=== PATIENT | male | born 1950 | race Caucasian/White ===

== ENCOUNTER → 2017-11-10 08:08 | Outpatient (CLI) | payer MEDICARE, SELFPAY ==
[2017-11-10 10:29] LABS: AST(SGOT) 19 U/L (15-37); Alanine Aminotransfer ALT/SGPT 28 U/L (16-61); Albumin, Serum 3.7 g/dL (3.2-5.0); Alkaline Phosphatase 113 U/L (45-117); Bilirubin, Direct 0.16 mg/dL (0.00-0.30); Cholesterol 107 mg/dL (200); Globulin 4.3 g/dL (2.2-4.2); High Density Lipoprotein 34 mg/dL; Triglycerides 137 mg/dL; Very Low Density Lipoprotein 27 mg/dL (5-40)
== END ==
PROVIDERS: Visit Provider Internal Medicine Cardiovascular Disease
DX: E78.5 Hyperlipidemia, unspecified (principal); Z79.899 Other long term (current) drug therapy
CPT/HCPCS: 36415; 80061; 80076

== ENCOUNTER → 2018-06-20 09:47 | Outpatient (CLI) | payer MEDICARE, SELFPAY ==
--- NOTE | 2018-06-21 11:20 | PFT ---
INTRODUCTION: The patient is a 77-year-old male that presents for pulmonary function testing secondary to a diagnosis of COPD. Respiratory therapy reports good patient effort. Bronchodilators were used during testing. INTERPRETATION: Forced expiration spirometry demonstrates the presence of a severe large airways obstructive ventilatory defect. There was no significant response to aerosolized bronchodilators, based upon strict ATS criteria. Spirograms are of good quality and do not plateau indicating slow emptying of the lungs. Body plethysmography was performed and reveals a decreased TLC to 3.56 L, 56% of predicted, indicative of a severe restrictive ventilatory impairment. The remainder of the lung volumes are symmetrically reduced. Diffusing capacity by single breath CO is severely reduced at 33% of predicted. When compared to previous pulmonary function studies dated November 2016, there has been a significant reduction in the patient's FVC, FEV1, TLC and DLCO. IMPRESSION: These pulmonary function studies demonstrate the presence of an irreversible severe mixed ventilatory defect with a symmetric reduction in diffusing capacity. There has been significant worsening in the patient's PFTs since November 2016, as noted above.
== END ==
PROVIDERS: Referring Provider Nurse Practitioner Acute Care; Visit Provider Nurse Practitioner Acute Care
DX: J90 Pleural effusion, not elsewhere classified (principal); Z72.0 Tobacco use
CPT/HCPCS: 94060; 94726; 94729

== ENCOUNTER → 2018-06-22 10:46 | Outpatient (CLI) | payer MEDICARE, SELFPAY ==
[2018-06-22 11:00] VITALS: PULSE 102; PULSE 80; PULSE 83; PULSE 88; PULSE 92; PULSE 93; PULSE 98; PULSE 99; O2SAT 87; O2SAT 92; O2SAT 94; O2SAT 96; O2SAT 97; O2SAT 98
--- NOTE | 2018-06-22 12:01 | CPS ---
Pt qualified for 2L Oxygen, prescription, face shet, and 6 minute walk test results faxed to [facility]. [facility] would not cover the patient since he had [employer]. [facility] going to pt's residence today to setup pt on oxygen.
--- NOTE | 2018-06-23 10:53 | PCM.PSN.6M ---
PSN 6 Minute Walk Test - Interpretation Interpretation: The patient ambulated 1062 feet over the course of 6 minutes beginning on room air without assistive devices or breaks. Pretesting oxygen saturation was noted to be 96% on room air. With ambulation, the hilario oxygen saturation was 87% at minute 2 of testing. 2 L/min of supplemental oxygen was applied and the patient was able to complete the remainder of the test, while maintaining oxygen saturations at or above 88%. This testing indicates a significant exertional oxygen desaturation. - Recommendations Recommendations: 2 L/min of supplemental oxygen should be utilized with exertion.
== END ==
PROVIDERS: Referring Provider Nurse Practitioner Acute Care; Visit Provider Nurse Practitioner Acute Care
DX: J90 Pleural effusion, not elsewhere classified (principal); Z72.0 Tobacco use
CPT/HCPCS: 94618

== ENCOUNTER → 2018-08-15 14:49 | Outpatient (CLI) | payer MEDICARE, SELFPAY ==
--- NOTE | 2018-08-15 15:07 | RAD_ITS ---
STUDY: X-RAY CHEST REASON FOR EXAM: Male, 68 years old. CHF. TECHNIQUE: PA and lateral views of the chest. COMPARISON: March 24, 2016 FINDINGS: There is a moderate size right pleural effusion. The visualized cardiac silhouette is stable. Normal mediastinum and juliana. Normal visualized pulmonary arteries. Normal visualized aortic arch and descending thoracic aorta. There are diffuse degenerative changes of the visualized thoracic spine. Normal visualized ribs, clavicles, and shoulders. There is no demonstrated abnormality of the visualized soft tissue structures of the upper abdomen. RAD/Chest PA and Lateral IMPRESSION: Moderate size right pleural effusion, cannot exclude associated right basilar atelectasis and/or pneumonia. Electronically Signed: Anna Harden MD at 22:26 EST Tel , Service support ,
[2018-08-15 15:51] LABS: Anion Gap 8 (5-15); BUN 28 mg/dL (7-18); BUN/Creat Ratio 15.8 RATIO (10-20); Calcium,Total 10.1 mg/dL (8.5-10.1); Chloride 100 mmol/L (98-107); Creatinine, Serum 1.77 mg/dL (0.70-1.30); EST Glomerular Filtration Rate 41 mL/min (>60); Est Glom Filt Rate - Afr Amer 49 mL/min (>60); Glucose 110 mg/dL (74-106); Sodium Level 142 mmol/L (136-145)
[2018-08-15 16:02] LABS: BNP,B-Type NATRIURETIC PEPTIDE 195.3 pg/mL (0-100)
== END ==
PROVIDERS: Referring Provider Internal Medicine Critical Care Medicine; Visit Provider Internal Medicine Critical Care Medicine
DX: I50.32 Chronic diastolic (congestive) heart failure (principal); J44.9 Chronic obstructive pulmonary disease, unspecified
CPT/HCPCS: 36415; 71046; 80048; 83880

== ENCOUNTER → 2018-08-23 11:22 | Outpatient (CLI) | payer MEDICARE, SELFPAY ==
[2018-08-18 14:36] VITALS: BMI 37.5
--- NOTE | 2018-08-23 | FLU_PTH ---
PATIENT: RULA RG LOC: U#:[id number] AGE/SX: 74/M ROOM: RE08/23/[address]: Dr. Evan Gutierrez MD : 1950 BED: DIS: SPEC #: [id number] RECD: 08/23/18 13:44 STATUS: SAMUEL JAMEL #: [id number] JORDYN: 08/23/18 00:[address]: Evan Gutierrez DEPT: CYTOLOGY RECD BY: Schuyler Londono ENTERED: 08/23/18 13:45 SP TYPE: Fluid OTHR DR: [facility] Tissues: THORACIC FLUID Procedures: Special Stain Group II Surgery Specimen Level IV Cytospin Fluid HEADER OPERATION: Ultrasound-guided right thoracentesis PRE-OP DIAGNOSIS: Right pleural effusion TISSUE SUBMITTED: Thoracentesis fluid for cytology DIAGNOSIS CYTOLOGY Thoracentesis fluid for cytology (cytospin and cell block): Negative for malignant cells. AM:princess 08/24/18 CYTOLOGY STUDY Slides are reviewed. CYTOLOGY GROSS Received is 120 ml of red cloudy fluid labeled with the patient's name and and designated per the requisition as thoracentesis. Submitted for cytology preparation including cell block. / 08/23/18 TC:5 CPT: 71498, 41273
--- NOTE | 2018-08-23 11:46 | US_ITS ---
PROCEDURE: ULTRASOUND GUIDED THORACENTESIS. DATE: August 23, 2018. INDICATION: Male, 68 years old. Right pleural effusion. PHYSICIAN: Clyde Beckford M.D. PROCEDURE: The risks, benefits, and alternatives to the procedure were explained to the patient. The specific risks of bleeding, infection, and pneumothorax requiring chest tube insertion were discussed and accepted. Written informed consent was obtained. Ultrasonographic evaluation of the right lower pleural space was carried out. An adequate pocket was identified. The patient was placed in the sitting, upright position. The overlying skin was prepped and draped in sterile fashion. 1% lidocaine was administered subcutaneously for local anesthesia. Under ultrasound guidance, a 5 Slovak thoracentesis needle/catheter system was advanced into the right posterior lower pleural fluid collection. Approximately 1720 mL of blood tinged fluid was drained. The catheter was removed, and a sterile dressing was applied. A specimen was collected and sent to the laboratory for analysis, as requested by the referring clinician. The patient tolerated the procedure well. A chest x-ray was ordered. US/Thoracentesis W US IMPRESSION: Ultrasound-guided right thoracentesis. Electronically Signed: Clyde Beckford MD at 15:02 EST , Service support ,
[2018-08-23 11:48] LABS: International Normalized Ratio 1.1; Partial Thromboplast Time 31.3 Seconds (24.1-36.2); Prothrombin Time (Protime)PT. 14.2 SECONDS (11.7-14.9)
--- NOTE | 2018-08-23 12:47 | RAD_ITS ---
STUDY: X-RAY CHEST REASON FOR EXAM: Male, 68 years old. Post right thoracentesis. TECHNIQUE: AP inspiration and expiration views. COMPARISON: Comparison is made with prior study dated August 15, 2018. FINDINGS: The patient is status post right thoracentesis. There is no evidence of pneumothorax. Mild right pleural-parenchymal changes persist. RAD/Chest Insp/Exp 2 View IMPRESSION: Status post right thoracentesis. There is no evidence of pneumothorax. Electronically Signed: Clyde Beckford MD at 9:45 EST , Service support ,
[2018-08-23 13:03] VITALS: BP 107/62; BP 127/78; BP 132/82; BP 133/80; BP 151/91; PULSE 64; PULSE 68; PULSE 73; PULSE 79; RESP 16; RESP 18; O2SAT 91; O2SAT 93; O2SAT 94; O2SAT 96
[2018-08-23 13:15] LABS: Cytology, Body Fluid / CSF SEE PATHOLOGY REPORT
== END ==
PROVIDERS: Nurse Practitioner Family; Referring Provider Internal Medicine Cardiovascular Disease; Visit Provider Internal Medicine Cardiovascular Disease
DX: I25.10 Atherosclerotic heart disease of native coronary artery without angina pectoris (principal); I48.0 Paroxysmal atrial fibrillation; I50.32 Chronic diastolic (congestive) heart failure; J90 Pleural effusion, not elsewhere classified; I31.3 Pericardial effusion (noninflammatory); E87.6 Hypokalemia; R94.2 Abnormal results of pulmonary function studies; E03.2 Hypothyroidism due to medicaments and other exogenous substances; Z72.0 Tobacco use; Z79.899 Other long term (current) drug therapy
CPT/HCPCS: 32555; 36415; 71046; 85610; 85730; 88108; 88305; 88313

== ENCOUNTER → 2018-09-01 08:03 | Outpatient (CLI) | payer MEDICARE, SELFPAY ==
[2018-08-18 14:36] VITALS: BMI 37.5
[2018-09-01 09:51] LABS: BUN 25 mg/dL (7-18); BUN/Creat Ratio 13.6 RATIO (10-20); Chloride 100 mmol/L (98-107); Creatinine, Serum 1.84 mg/dL (0.70-1.30); EST Glomerular Filtration Rate 39 mL/min (>60); Est Glom Filt Rate - Afr Amer 47 mL/min (>60); Glucose 132 mg/dL (74-106); Potassium 3.7 mmol/L (3.5-5.1); Sodium Level 139 mmol/L (136-145)
[2018-09-01 09:52] LABS: Anion Gap 7 (5-15)
== END ==
PROVIDERS: Referring Provider Internal Medicine Cardiovascular Disease; Visit Provider Internal Medicine Cardiovascular Disease
DX: I25.10 Atherosclerotic heart disease of native coronary artery without angina pectoris (principal); I48.0 Paroxysmal atrial fibrillation; I50.32 Chronic diastolic (congestive) heart failure; J90 Pleural effusion, not elsewhere classified
CPT/HCPCS: 36415; 80048

== ENCOUNTER → 2018-11-29 13:48 | Outpatient (CLI) | payer MEDICARE, SELFPAY ==
[2018-08-18 14:36] VITALS: BMI 37.5
[2018-11-15 15:20] VITALS: BMI 37.5
--- NOTE | 2018-11-29 13:49 | ECHOCS_ITS ---
Reason For Study: CHF Procedure This was a 2D Doppler, Color Flow transthoracic echocardiogram. The study was technically difficult. Contrast injection was performed. Exam performed in department. Left Ventricle Normal LV size. Severe concentric left ventricular hypertrophy. Left ventricular systolic function is normal. The estimated ejection fraction is 65 %. No regional wall motion abnormalities noted. Right Ventricle Normal RV size. Normal systolic function. Atria The left atrium is mildly enlarged. Normal right atrium. No doppler evidence for ASD. Mitral Valve There is no mitral annular calcification. Mild diffuse mitral valve thickening. Mild (1+) mitral valve insufficiency. Tricuspid Valve Normal tricuspid valve. Mild tricuspid valve insufficiency. Unable to estimate RV systolic pressure/pulmonary artery pressure due to technically difficult study. Aortic Valve Trisinus/trileaflet aortic valve. Mild diffuse aortic valve thickening. Mild focal aortic valve calcification. Aortic sclerosis, no stenosis. Pulmonic Valve The pulmonic valve is not well visualized. Great Vessels Normal sized aortic root. Pericardium/Pleural No pericardial effusion. Epicardial fat. Medication 22 gauge I.V. with prn adaptor inserted into left arm. Diluted definity 3ml given slow IV push to enhance endocardial definition. MMode/2D Measurements & Calculations LVIDd: 5.2 cm IVSd: 2.0 cm LVOT diam: 2.0 cm LVIDs: 3.4 cm LVPWd: 1.9 cm RVDd: 3.2 cm FS: 35.8 % LVOT area: 3.0 cm2 Ao root diam: 3.5 cm LAV(MOD-bp): 86.1 ml LVAd ap4: 32.3 cm2 LAV(MOD-bp) Indexed: 36.9 ml/m2 EDV(MOD-sp4): 98.6 ml LAV(MOD-sp2): 99.9 ml EDV(sp4-el): 103.6 ml LAV(MOD-sp4): 69.0 ml LVAs ap4: 14.3 cm2 ESV(MOD-sp4): 27.0 ml ESV(sp4-el): 28.4 ml EF(MOD-sp4): 72.6 % EF(sp4-el): 72.6 % SV(MOD-sp4): 71.6 ml SV(sp4-el): 75.3 ml LA A4 area: 23.8 cm2 LA dimension(2D): 3.9 cm RA A4 area: 17.7 cm2 Time Measurements MV dec time: 0.18 sec Doppler Measurements & Calculations MV E max jordan: 117.6 cm/sec Lat Peak E' Jordan: 8.2 cm/sec Med Peak E' Jordan: 4.6 cm/sec MV A max jordan: 82.2 cm/sec E/E' lat: 14.3 E/E' med: 25.3 MV E/A: 1.4 Ao V2 max: 132.1 cm/sec LV V1 max: 132.5 cm/sec PA V2 max: 134.5 cm/sec Ao max P.0 mmHg LV V1 max P.0 mmHg SOCO(V,D): 3.0 cm2 Interpretation Summary The study was technically difficult. Contrast injection was performed. Left ventricular systolic function is normal. The estimated ejection fraction is 65 %. Severe concentric left ventricular hypertrophy. The left atrium is mildly enlarged. Mild diffuse mitral valve thickening. Mild (1+) mitral valve insufficiency. Mild tricuspid valve insufficiency. Aortic sclerosis, no stenosis. Epicardial fat. Unable to estimate RV systolic pressure/pulmonary artery pressure due to technically difficult study. Transmitral diastolic flow velocities suggest diastolic dysfunction (pseudonormal pattern). Ordering Physician: Evan Gutierrez Referring Physician: [facility] Performed By: Alexsandra Urbina, RDCS, RVT
== END ==
PROVIDERS: Referring Provider Internal Medicine Cardiovascular Disease; Visit Provider Internal Medicine Cardiovascular Disease
DX: I50.32 Chronic diastolic (congestive) heart failure (principal); I25.10 Atherosclerotic heart disease of native coronary artery without angina pectoris; I48.0 Paroxysmal atrial fibrillation; J90 Pleural effusion, not elsewhere classified
CPT/HCPCS: 93306; Q9957; A4216; C8929

== ENCOUNTER 2019-08-29 15:01 | Emergency (ER) | payer MEDICARE, OTHER, SELFPAY ==
[2019-08-29 14:06] VITALS: BMI 38.3
[2019-08-29 15:02] VITALS: BP 106/70; PULSE 84; RESP 19; TEMP 36.7; O2SAT 99; BMI 36.0
--- NOTE | 2019-08-29 15:18 | RAD_ITS ---
STUDY: X-RAY CHEST REASON FOR EXAM: Male, 69 years old. SHORTNESS OF BREATH, COPD. TECHNIQUE: Single AP portable view of the chest. COMPARISON: Comparison is made with prior examination dated August 23, 2018. FINDINGS: EKG electrodes are seen. Since prior study, recommend progressive right pleural effusion with right basilar infiltration and/or atelectasis. There is also evidence of a mild degree of vascular congestion. There is moderate cardiac enlargement. Normal mediastinum and juliana. Normal visualized pulmonary arteries. Normal visualized aortic arch and descending thoracic aorta. There are degenerative changes of the visualized thoracic spine. Normal visualized ribs, clavicles, and shoulders. There is no demonstrated abnormality of the visualized soft tissue structures of the upper abdomen. RAD/Chest 1 View (Portable) IMPRESSION: Increasing right pleural effusion with right basilar atelectasis and/or infiltration with mild degree of CHF. Electronically Signed: Clyde Beckford, at 15:38 EST , Service support ,
--- NOTE | 2019-08-29 15:19 | EKG12_ITS ---
Test Reason : FATIGUE Blood Pressure : / mmHG Vent. Rate : 084 BPM Atrial Rate : 084 BPM P-R Int : 184 ms QRS Dur : 078 ms QT Int : 370 ms P-R-T Axes : 022 -33 029 degrees QTc Int : 437 ms Normal sinus rhythm Left axis deviation Minimal voltage criteria for LVH, may be normal variant Nonspecific ST abnormality Abnormal ECG Confirmed by JAZMINE MACIAS ([id number]), supervising film or videotape editor GEORGI MYERS ([id number]) on 08/31/2019 1:10:46 PM Referred By: MARKUS Confirmed By:JAZMINE MACIAS
--- NOTE | 2019-08-29 15:21 | ED.VISSUMM ---
- ER Visit Summary Date of Service: 08/29/19 Chief Complaint: Fatigue History of Present Illness: The patient is a 69 M who presents with fatigue. He has had this for about 1 week. He has a chronic right pleural effusion with a Pleurx catheter in place. Last week it was plugged and and then it started draining bloody fluid. He has felt weak ever since then. He has had no appetite and has had some weight loss. states that he has been sleeping a lot. He denies any fevers. No shortness of breath, chest pain or cough. He is followed up with Dr. Correa in [place] for this Pleurx catheter. He saw cardiology today and they sent him in for further evaluation due to his fatigue and weakness. Physical Examination: Vital signs reviewed. HEENT exam unremarkable. Heart is regular rate and rhythm without murmurs. Lungs have diminished sounds in the right base. Abdomen is soft and nontender. Extremities reveal no edema. Skin exam normal. Neurologic exam is normal sensation but his strength is weak throughout. No lateralizing symptoms. Test Results: White blood cell count 12, hemoglobin 8.9, sodium 131, BUN 76 with a creatinine of 3.47. Troponin normal. Chest x-ray reveals a right lower pleural effusion with CHF. Emergency Department Course and Treatment: I was able to look at previous results and his hemoglobin in July was 13 and creatinine 1.75. Patient appears to have acute blood loss anemia with acute kidney injury. My concern is that he is having blood from his Pleurx and that he may be bleeding into that effusion. He may need a CT surgery consult which we do not have here. I initially discussed with [place] and they do not have that capability either. Family requested to go to [facility]. Patient was discussed with that facility and he will be transferred there. Treatment Plan: [] Disposition: Transfer Impression: Acute blood loss anemia, acute kidney injury, right pleural effusion This note was generated with [employer] dictation software. It may contain incorrect words, spelling, and punctuation that were not noted in review of the chart prior to signing ED Disposition - Plan for ED Patient: [facility] [Primary Care Provider] -
--- NOTE | 2019-08-29 15:25 | NURSING ---
NO OLD EKGS
[2019-08-29 16:11] LABS: Hematocrit 29.4 % (40-54); Hemoglobin 8.9 g/dL (13.0-16.5); Mean Corp Hgb Conc 30.3 g/dL (32-36); Mean Corpuscular Hgb 26.8 pg (27.0-32.0); Mean Corpuscular Volume 88.6 fL (80-94); Mean Platelet Vol. 10.8 fl (6.2-12.0); POSITIVE COUNT YES; POSITIVE MORPHOLOGY YES; Platelet Count 357 K/mm3 (150-450); RBC Distribution Width CV 15.8 % (11.6-14.6); RBC Distribution Width SD 49.8 fl (35.1-43.9); Red Blood Count 3.32 M/mm3 (4.6-6.2)
[2019-08-29 16:25] LABS: BUN 76 mg/dL (7-18); Creatinine, Serum 3.47 mg/dL (0.70-1.30); Glucose 153 mg/dL (74-106)
[2019-08-29 16:26] LABS: ALB/GLOB Ratio 0.4 RATIO (0.9-2.4); AST(SGOT) 27 U/L (15-37); Alanine Aminotransfer ALT/SGPT 25 U/L (16-61); Albumin, Serum 2.2 g/dL (3.2-5.0); Alkaline Phosphatase 215 U/L (45-117); Anion Gap 7 (5-15); BUN/Creat Ratio 21.9 RATIO (10-20); Calcium,Total 10.3 mg/dL (8.5-10.1); Chloride 98 mmol/L (98-107); EST Glomerular Filtration Rate 19 mL/min (>60); Est Glom Filt Rate - Afr Amer 23 mL/min (>60); Estimated Creatinine Clearance 20.45 ml/min; Protein, Total 8.2 g/dL (6.4-8.2); Sodium Level 131 mmol/L (136-145)
[2019-08-29 16:29] LABS: Differential Indicated MANUAL DIFF
[2019-08-29 17:01] VITALS: BP 123/75; PULSE 83; RESP 20; O2SAT 100
[2019-08-29 17:02] LABS: BNP,B-Type NATRIURETIC PEPTIDE 147.6 pg/mL (0-100)
[2019-08-29 17:03] LABS: Neutrophil-Band 3 % (0-5); Neutrophil-Segmented 67 % (47-70); Total Cells Counted 100 (MANUAL DIFF)
[2019-08-29 17:04] LABS: Basophil 1 % (0-1); Lymphocyte 14 % (19-41); Metamyelocyte 2 % (0-1); Monocyte 8 % (0-10); Myelocyte 5 (0-0); Nucleated Red Bld Cells,Manual 2 % (0-5)
[2019-08-29 17:05] LABS: Absolute Lymphocyte Count 1.68 X10^3/uL (0.83-4.51); Absolute Neutrophil Count 8.4 X10^3/uL (2.0-7.7)
[2019-08-29] MEDS: 0.9% Normal Saline 1,000 ML 150 ML IV (17:09)
[2019-08-29 17:23] LABS: Lactic Acid 1.5 mmol/L (0.4-1.9)
--- NOTE | 2019-08-29 17:50 | NURSING ---
CALLED [facility], TALKED TO SAMIRA. GAVE HER INFO. SHE REQUESTED THAT WE CALL BACK WHEN WE GET A BED AT [facility]
--- NOTE | 2019-08-29 18:00 | NURSING ---
CALLING [facility] FOR TRANSFER.
[2019-08-29 18:53] VITALS: BP 128/71; PULSE 84; RESP 18; TEMP 37.1; O2SAT 100
--- NOTE | 2019-08-29 18:53 | ED.RN ---
CALLED [facility] SPOKE TO YOEL TO ADVISE THIS PT IS GOING TO [facility]
[2019-08-29 19:00] VITALS: BP 128/71; PULSE 86; RESP 20; TEMP 37.1; O2SAT 100
[2019-08-30 14:27] LABS: Pathologist Review Reviewed
== END 2019-08-29 19:20 | disposition short-term general hospital (02) ==
PROVIDERS: Emergency Provider Emergency Medicine
DX: D62 Acute posthemorrhagic anemia (principal); N17.9 Acute kidney failure, unspecified; I50.9 Heart failure, unspecified; J44.9 Chronic obstructive pulmonary disease, unspecified; I25.10 Atherosclerotic heart disease of native coronary artery without angina pectoris; I48.91 Unspecified atrial fibrillation; Z79.01 Long term (current) use of anticoagulants; Z79.84 Long term (current) use of oral hypoglycemic drugs; Z79.82 Long term (current) use of aspirin; Z79.899 Other long term (current) drug therapy
CPT/HCPCS: 71045; 80053; 83605; 83880; 84484; 85025; 93005; 96360; 96361; 99285; J7030; A4216